=== PATIENT | female | born 1965 | race Caucasian/White ===

== ENCOUNTER 2019-03-18 09:23 | Day surgery (SDC) | payer MEDICARE ==
[2019-03-18] MEDS ORDERED: Marcaine 0.5% SDV 10 ML IJ ONE (09:24)
[2019-03-18] MEDS ORDERED: Xylocaine 1% Vial 30 ML PF IJ ONE (09:24)
[2019-03-18] MEDS ORDERED: Ketamine HCl 50 MG/ML IV ONE (09:24)
[2019-03-18] MEDS ORDERED: Xylocaine-Mpf 2 ML IJ ONE (09:24)
[2019-03-18] MEDS ORDERED: DIPRIVAN 200 MG/20 ML IV ONE (09:24)
--- NOTE | 2019-03-18 13:42 | XRAY ---
29 seconds fluoroscopy time in surgery for left lumbar nerve block.
--- NOTE | 2019-03-18 13:53 | XRAY ---
Indication: Left lumbar nerve block. Intraoperative fluoroscopy was provided for 29 seconds. 2 digital spot images submitted for interpretation demonstrates single posterior needle tip just anterior to possibly the L2-L3 interspace level, left of midline. Small amount of contrast injected for needle tip placement. Correlate with intraoperative findings/report.
[2019-03-18] MEDS ORDERED: Lactated Ringers 1,000 ML IV ONE (15:37)
== END 2019-03-18 11:23 | disposition home or self-care (01) ==
LOC: SDC-PAIN 09:23
PROVIDERS: ATTEND Psychiatry & Neurology Pain Medicine
DX: G90.522 Complex regional pain syndrome I of left lower limb (principal); E11.9 Type 2 diabetes mellitus without complications; Z79.899 Other long term (current) drug therapy; E78.5 Hyperlipidemia, unspecified; D64.9 Anemia, unspecified; K21.9 Gastro-esophageal reflux disease without esophagitis; E66.9 Obesity, unspecified; F41.9 Anxiety disorder, unspecified; F32.9 Major depressive disorder, single episode, unspecified
CPT/HCPCS: 64520; 72100; 77002; 82962; 84703; J2001; J2704; Q9966

== ENCOUNTER 2019-05-20 10:13 | Day surgery (SDC) | payer MEDICARE ==
[2019-05-20] MEDS ORDERED: Depo-Medrol 40 MG/ML IM ONE (10:14)
[2019-05-20] MEDS ORDERED: Marcaine 0.5% SDV 10 ML IJ ONE (10:14)
[2019-05-20] MEDS ORDERED: DIPRIVAN 200 MG/20 ML IV ONE (11:27)
[2019-05-20] MEDS ORDERED: Ketamine HCl 50 MG/ML ONE (11:28)
--- NOTE | 2019-05-20 12:34 | XRAY ---
Indication: Left hip injection. Intraoperative fluoroscopy was provided for 11 seconds. Single digital spot image submitted for interpretation demonstrates needle tip projecting just lateral to the left femur neck. Small amount of contrast injected for needle tip placement. Correlate with intraoperative findings/report.
--- NOTE | 2019-05-20 12:37 | XRAY ---
11 seconds fluoroscopy time in surgery for left hip injection.
[2019-05-20] MEDS ORDERED: Lactated Ringers 1,000 ML IV ONE (13:27)
== END 2019-05-20 11:43 | disposition home or self-care (01) ==
LOC: SDC-PAIN 10:13
PROVIDERS: ATTEND Psychiatry & Neurology Pain Medicine
DX: M16.12 Unilateral primary osteoarthritis, left hip (principal); E11.9 Type 2 diabetes mellitus without complications; K21.9 Gastro-esophageal reflux disease without esophagitis; F41.8 Other specified anxiety disorders; E78.5 Hyperlipidemia, unspecified; D64.9 Anemia, unspecified; G90.50 Complex regional pain syndrome I, unspecified
CPT/HCPCS: 20610; 73501; 77002; 82962; 84703; J1030; J2704; Q9966

== ENCOUNTER 2019-08-19 08:48 | Day surgery (SDC) | payer MEDICARE ==
[2019-08-19] MEDS ORDERED: Marcaine 0.5% SDV 10 ML IJ ONE (08:49)
[2019-08-19] MEDS ORDERED: Depo-Medrol 40 MG/ML IM ONE (08:49)
[2019-08-19] MEDS ORDERED: DIPRIVAN 200 MG/20 ML IV ONE (10:09)
[2019-08-19] MEDS ORDERED: Ketamine HCl 50 MG/ML ONE (10:09)
[2019-08-19] MEDS ORDERED: Lactated Ringers 1,000 ML IV ONE (13:56)
--- NOTE | 2019-08-19 16:26 | XRAY ---
22 seconds fluoroscopy time in surgery for left SI joint injection.
--- NOTE | 2019-08-20 06:31 | XRAY ---
Indication: Left SI joint injection. Intraoperative fluoroscopy was utilized for 22 seconds. AP and lateral digital spot films reveal a distal needle tip in the projection of the inferior aspect of the left sacroiliac joint. There is an apparent oval-shaped air density located just inferior to the needle tip on the lateral image. Correlate with intraoperative findings/report.
== END 2019-08-19 10:40 | disposition home or self-care (01) ==
LOC: SDC-PAIN 08:48
PROVIDERS: ATTEND Psychiatry & Neurology Pain Medicine
DX: M17.12 Unilateral primary osteoarthritis, left knee (principal); E11.9 Type 2 diabetes mellitus without complications; K21.9 Gastro-esophageal reflux disease without esophagitis; F41.8 Other specified anxiety disorders; E78.5 Hyperlipidemia, unspecified; D64.9 Anemia, unspecified; G90.50 Complex regional pain syndrome I, unspecified; Z79.899 Other long term (current) drug therapy
CPT/HCPCS: 27096; 72020; 77002; 82962; 84703; J1030; J2704; G0260